=== PATIENT | female | born 1990 | race Caucasian/White ===

== ENCOUNTER 2019-09-16 17:02 | Emergency (ER) | payer BC, MEDICAID ==
[~2019-09-16] VITALS: Ht 167.6 cm; Wt 90.3 kg
[2019-09-16 17:20] VITALS: BP 133/86
[2019-09-16] MEDS ORDERED: ONDANSETRON ODT 8 MG PO ONE (19:30)
--- NOTE | 2019-09-16 19:50 | NUR ---
pt called to room from lobby
--- NOTE | 2019-09-16 19:55 | NUR ---
not in lobby
--- NOTE | 2019-09-16 20:21 | NUR ---
not in lobby
== END 2019-09-16 20:21 | disposition left against medical advice (07) ==
LOC: ED 20:15
DX: R10.9 Unspecified abdominal pain (principal); R11.10 Vomiting, unspecified; R19.7 Diarrhea, unspecified
CPT/HCPCS: 99281